=== PATIENT | male | born 1935 | race Caucasian/White ===

== ENCOUNTER → 2020-06-01 11:11 | Outpatient (BNVA) | payer MEDICARE, SELFPAY | PROVIDERS: PCP Internal Medicine; Referring Provider Internal Medicine; Visit Provider Urology | DX: N20.0 Calculus of kidney (principal); N40.1 Benign prostatic hyperplasia with lower urinary tract symptoms; Z12.5 Encounter for screening for malignant neoplasm of prostate | CPT/HCPCS: 99212 ==

== ENCOUNTER → 2021-05-14 11:16 | Outpatient (BNVA) | payer MEDICARE, SELFPAY | PROVIDERS: PCP Internal Medicine; Visit Provider Urology | DX: N40.1 Benign prostatic hyperplasia with lower urinary tract symptoms (principal); N13.8 Other obstructive and reflux uropathy; N20.0 Calculus of kidney | CPT/HCPCS: 51798; 99212 ==

== ENCOUNTER → 2022-06-03 13:15 | Outpatient (BNVA) | payer MEDICARE, SELFPAY | PROVIDERS: PCP Internal Medicine; Visit Provider Urology | DX: N40.1 Benign prostatic hyperplasia with lower urinary tract symptoms (principal); N13.8 Other obstructive and reflux uropathy; N20.0 Calculus of kidney | CPT/HCPCS: Q3014 ==

== ENCOUNTER 2023-06-02 10:52 | Outpatient (AMB) | payer MEDICARE, SELFPAY ==
--- NOTE | 2023-06-02 10:53 | MHC.OFFVIS ---
Intake Intake Visit Reasons: 1Y PSA(set) Intake Note: Patient is Present for Telephone Follow Up PSA Urology Med: Finasteride, Tamsulosin Antibiotic Allergy: Clindamycin Blood Thinner: Aspirin Allergies Clindamycin HCl Allergy (Unknown, Uncoded 06/02/23 10:54) Unknown HPI HPI Comments History of Present Illness Details Alexei is a pleasant male. He is seen for the following urologic conditions - nephrolithiasis - lower urinary tract symptoms Telemedicine evaluation 15 minute consultation Flowgram ralph Video attempted Doing well on finasteride and tamsulosin Will continue Prescription provided 12 month follow-up Nocturia tolerable Lower Urinary Tract Symptoms: Prostate procedure many years ago Still gets an MRI every few years for other reasons and that involves contrast. I informed him in general that would mean he has sufficient renal function Current visit is for further evaluation of, lower urinary tract symptoms, predominate obstructive symptoms - substantial improvement in stream Minimal nocturia Happy with medications Current treatment includes alpha destinee, 5-AR. Prostate Symptom Score Mild (0-8), Bother 3 11/13 , Mild (0-8), Bother 3. Symptoms include weak stream, and are progressing 11/13 , weak stream, and are stable. - PSA 05/16 0.2, 05/17 0.2 Testing at next visit will include bladder scan. Nephrolithiasis/Urolithiasis: Left renal artery stenosis on imaging Does have intermittent vascular assessment They present for evaluation of back pain none flank pain none abdominal pain none The pain is characterized by non-radiating Yes Associated symptoms include Fever No Nausea No Chills No Hematuria No Urolithiasis was diagnosed 2012. The patient previously had kidney stones whose composition w unkown. Laboratory investigations include no recent labs. 24 Hour urine evaluation none on file. Prior treatment(s) include observation, with dietary advice to increase fluids, decrease salt and watch protein intake. Prior imaging includes a [facility] x-ray 2014 Negative 01/10 , a renal ultrasound, showing no evidence of stones 11/12 , a CT (computed tomography) scan of the abdomen/pelvis (stone protocol) left renal artery stenosis with slightly smaller kidney. Current therapeutic plan will be to continue with imaging surveillance [facility] Medical History Benign prostatic hyperplasia with lower urinary tract symptoms Cataracts, bilateral Erectile dysfunction Feeling of incomplete bladder emptying Hypercholesterolemia Hyperlipidemia OA (osteoarthritis) Renal artery stenosis Surgical History History of surgery Review of Systems Const All systems reviewed & are unremarkable except as noted in HPI and below Reports no additional complaints Resp Reports no additional complaints GI Reports no additional complaints Reports as per HPI Musc Reports no additional complaints Physical Exam Telemedicine evaluation Appropriate responses Regular breathing rate and rhythm HEENT Head: Yes normal to inspection Ears: hearing grossly normal bilaterally Eyes General: appearance normal, both eyes and all related structures Neck Neck: Yes normal visual inspection Chest Chest palpation & inspection: normal inspection of the chest Resp Effort & Inspection: normal respiratory effort and able to speak in complete sentences Assessment & Plan Assessment & Plan (1) Nephrolithiasis: Code(s): N20.0 - Calculus of kidney (2) BPH w urinary obs/LUTS: Code(s): N40.1 - Benign prostatic hyperplasia with lower urinary tract symptoms; N13.8 - Other obstructive and reflux uropathy Plan Twelve month follow-up Medications: Refilled finasteride 5 mg PO DAILY 90 tabs 3RF 90 days tamsulosin 0.4 mg PO DAILY 90 caps 3RF 90 days Patient Instructions: Imaging studies, laboratory and physical exam results were discussed and reviewed in detail. No major barriers to patient understanding were identified. An opportunity to ask questions regarding the treatment plan was provided. All questions were answered. The patient expressed understanding and agreement with the above treatment plan. The patient is aware they should contact our office by phone for worsening of their current condition or the appearance of new urologic symptoms. Compliance is encouraged with any medications and followup testing that is ordered. It is a privilege to participate in the urologic care of your patient. If you have any questions or concerns regarding treatment for the above conditions, or other urologic issues, please do not hesitate to contact me. The office telephone contact is [phone]. This note is constructed using voice recognition software. While every effort has been made to ensure accuracy electro optics engineer errors may have been included. Yours sincerely, Dr David Narvaez MD, [facility] - Urology Providers of Expert, Compassionate Care for the Genitourinary System Telehealth Telehealth Location of provider rendering services: practice address Location of patient: address on file Patient Identification confirmed using: Name, : Yes Telehealth method: voice only Patient verbally consented to treatment: Yes Patient verbally consented to billing insurance company: Yes Patient informed of any privacy concerns related to visit: Yes Coding Level of Care Code Tele Est Pt Level 3 (25786) Diagnoses Nephrolithiasis N20.0 BPH w urinary obs/LUTS N40.1; N13.8
== END 2023-06-02 13:55 | disposition home or self-care (01) ==
LOC: HO.HUSH 10:52
PROVIDERS: PCP Internal Medicine; Visit Provider Urology
DX: N20.0 Calculus of kidney (principal); N40.1 Benign prostatic hyperplasia with lower urinary tract symptoms; N13.8 Other obstructive and reflux uropathy
CPT/HCPCS: 99442

== ENCOUNTER → 2023-06-02 10:52 | Outpatient (BNVA) | payer MEDICARE, SELFPAY | PROVIDERS: PCP Internal Medicine; Visit Provider Urology ==